=== PATIENT | female | born 1970 | race Caucasian/White ===

== ENCOUNTER 2018-02-23 21:25 | Emergency (ER) | payer MEDICARE, OTHER ==
[~2018-02-23] VITALS: Ht 162.6 cm; Wt 107.0 kg
[~2018-02-23 21:25] MED LIST: PHEN-716 PO
[2018-02-23 21:30] VITALS: BP 171/78
== END 2018-02-23 23:41 | disposition home or self-care (01) ==
LOC: ER 21:26
DX: M25.531 Pain in right wrist (principal)
CPT/HCPCS: 99281

== ENCOUNTER 2018-03-20 16:10 | Emergency (ER) | payer MEDICARE, OTHER ==
[~2018-03-20] VITALS: Ht 162.6 cm; Wt 95.6 kg
[2018-03-20 16:13] VITALS: BP 183/104
[2018-03-20 17:17] LABS: CLARITY,URINE CLEAR (Clear); COLOR,URINE YELLOW (Yellow); GLUCOSE, URINE NEGATIVE (Neg); KETONES,URINE NEGATIVE (Neg); LEUKOCYTE ESTERASE ,URINE NEGATIVE (Neg); NITRITES, URINE NEGATIVE (Neg); OCCULT BLOOD,URINE NEGATIVE (Neg); PROTEIN,URINE NEGATIVE (Neg); UA COLLECTION TYPE CLN CATCH MIDSTREAM; UROBILINOGEN,URINE 0.2 E.U/dL (0.2-1.0)
== END 2018-03-20 18:08 | disposition home or self-care (01) ==
LOC: ER 16:10
DX: R30.0 Dysuria (principal); R00.0 Tachycardia, unspecified; G89.29 Other chronic pain; Z87.442 Personal history of urinary calculi; Z88.8 Allergy status to other drugs, medicaments and biological substances; Z79.899 Other long term (current) drug therapy
CPT/HCPCS: 81003; 99283

== ENCOUNTER 2024-02-07 21:15 | Emergency (ER) | payer MEDICARE ==
[~2024-02-07] VITALS: Ht 162.6 cm; Wt 104.5 kg
[2024-02-07 21:30] VITALS: BP 124/70; PULSE 86; RESP 18; TEMP 98; O2SAT 95
[2024-02-08] MEDS ORDERED: HYDR-3972 PO (15:32)
[2024-02-08] MEDS ORDERED: PRED20TA PO (15:32)
== END 2024-02-07 23:25 | disposition left against medical advice (07) ==
LOC: ER 21:16
DX: M54.50 Low back pain, unspecified (principal); Z53.21 Procedure and treatment not carried out due to patient leaving prior to being seen by health care provider
CPT/HCPCS: 99281

== ENCOUNTER 2024-02-08 13:05 | Emergency (ER) | payer MEDICARE ==
[~2024-02-08] VITALS: Ht 162.6 cm; Wt 94.0 kg
[2024-02-08 14:00] VITALS: BP 135/83; PULSE 90; RESP 16; O2SAT 95
[2024-02-08] MEDS ORDERED: PRED20TA PO (15:32)
[2024-02-08] MEDS ORDERED: HYDR-3972 PO (15:32)
[2024-02-08] MEDS: HYDROcodone/acetaminophen 10/325mg tab PO ONE (15:39)
[2024-02-08] MEDS: dexamethasone sod phosphate 10mg/ml inj IM STA (15:39)
[2024-02-08 16:02] VITALS: TEMP 98
== END 2024-02-08 16:03 | disposition home or self-care (01) ==
LOC: ER 13:06
DX: M51.36 Other intervertebral disc degeneration, lumbar region (principal); M54.16 Radiculopathy, lumbar region; Z88.8 Allergy status to other drugs, medicaments and biological substances; Z79.899 Other long term (current) drug therapy
CPT/HCPCS: 96372; 99284; J1100